=== PATIENT | female | born 1940 | race Caucasian/White ===

== ENCOUNTER 2022-12-16 22:49 | Emergency (ER) | payer MEDICARE, BC, SELFPAY ==
--- NOTE | 2022-12-16 | ECG_ITS ---
Test Reason : SOB Blood Pressure : / mmHG Vent. Rate : 085 BPM Atrial Rate : 085 BPM P-R Int : 186 ms QRS Dur : 146 ms QT Int : 394 ms P-R-T Axes : 052 -02 133 degrees QTc Int : 468 ms Normal sinus rhythm Left bundle branch block Abnormal ECG No previous ECGs available Referred By: Generic ED Physician Electronically Signed By:IDALIA MAC
--- NOTE | ~2022-12-16 | XR_ITS ---
EXAMINATION: XR KNEE, LEFT CLINICAL INFORMATION: Fall. Pain. COMPARISON: None available. TECHNIQUE: Four views of the left knee. FINDINGS: The bone mineralization is normal. There is mild medial knee degenerative change with mild loss of joint space and minimal osteophyte formation. There is no fracture. There is no joint effusion. The soft tissues are unremarkable. XR/XR knee LT 4V IMPRESSION: Mild medial knee degenerative change. No acute osseous abnormality.
[2022-12-16 22:54] VITALS: BP 152/67; BP 180/120; PULSE 87; PULSE 88; RESP 15; TEMP 36.6; O2SAT 90; O2SAT 95; BMI 44.8
--- NOTE | 2022-12-16 23:21 | MHC.EDTECH ---
this tech assumed care of this pt upon arrival. PT placed on it systems engineer, EKG completed and handed into provider. Bloodwork drawn and sent for processing. Pt changed into hospital gown Red fall risk wristband and red socks placed on PT
[2022-12-16 23:23] LABS: Basophils Percent Auto 0.3 % (0-2); Eosinophils Absolute Auto 0.2 X10*3/uL (0.0-0.4); Eosinophils Percent Auto 1.3 % (0-4); Imm Gran Abs Auto 0.08 X10*3/uL (0.00-0.03); Imm Gran Pct Auto 0.5 % (0.0-0.4); Lymphocytes Absolute Auto 2.5 X10*3/uL (1.2-4.9); Lymphocytes Percent Auto 16.3 % (20-40); MANUAL DIFF FLAG NO; Mean Corpuscular Hemoglobin 28.7 pg (27.0-33.0); Mean Corpuscular Volume 92.7 fL (80.0-98.0); Mean Platelet Volume 10.8 fL (9.4-12.3); Monocytes Absolute Auto 1.4 X10*3/uL (0.1-1.2); Monocytes Percent Auto 9.5 % (2-11); Neutrophils Absolute Auto 10.8 x10*3/uL (2.0-8.3); Neutrophils Percent Auto 72.1 % (45-73); Platelet Count 281 X10*3/uL (160-400); Red Blood Count 4.53 X10*6/uL (4.20-5.50); Red Cell Distribution Width 14.8 % (11.0-16.0)
--- NOTE | 2022-12-16 23:27 | ED_ITS ---
HPI - Fall General Chief Complaint: Fall Stated Complaint: MECHANICAL FALL DIFF BREATHING HX COPD Time Seen by Provider: 12/16/22 23:25 Source: patient Mode of arrival: ambulatory Limitations: no limitations History of Present Illness HPI Narrative: Patient history of COPD on home oxygen p.r.n. visiting from floor of tripped on her shoe under her left side hitting her knee to the ground no head injury no other injuries no loss of consciousness for the slightly more short of breath after fall Related Data Allergies Allergy/AdvReac Type Severity Reaction Status Date / Time No Known Allergies Allergy Verified 12/16/22 23:38 Review of Systems 2 Review of Systems: Yes all other systems are reviewed and are negative [facility] Social History Social History Alcohol intake: never Smoked in Last 30 Days: No Use of substances other than those prescribed or required for medical reasons: No Advance Directives: No Advance Directives Information Provided: Yes Physical Exam 2 Vital Signs: Vital Signs: Last Vital Signs Temp 99.0 F 12/17/22 02:12 Pulse 102 H 12/17/22 02:12 Resp 26 H 12/17/22 02:12 BP 152/67 H 12/16/22 22:54 Pulse Ox 93 12/17/22 02:12 O2 Del Method Nasal Cannula 12/17/22 02:12 O2 Flow Rate 1 12/17/22 02:12 Oxygen Flow Rate 1 12/16/22 22:54 BMI result Body Mass Index 44.8 Appearance: Alert. Oriented X3. No acute distress. Eyes: PERRLA, ENT: Pharynx normal. Oral Mucosa moist, AT ,NC Neck: Normal inspection. Neck supple. CVS: Normal heart rate and rhythm. Pulses normal. Respiratory: No respiratory distress. Equal air entry bilateral, bilateral wheeze+ Abdomen: Soft and nontender. Bowel sounds are present, no mass palpable, no CVA tenderness Skin: Skin warm and dry. Normal skin color. Normal skin turgor. Extremities: No lower extremity edema. No calf tenderness pelvis stable, left knee diffuse tenderness mild swelling Neuro: Oriented X 3. No motor deficit. No sensory deficit.No cerebellar signs , cranial nerves II-XII intact Medications Administered Discontinued Medications Generic Name Dose Route Start Last Admin Trade Name Freq PRN Reason Stop Dose Admin Albuterol Sulfate 5 mg 12/16/22 23:38 12/16/22 23:46 Albuterol Sulfate (0.083%) 2.5 Mg/3 Ml Vial.Neb INHALE 12/16/22 23:39 5 mg ONCE ONE Administration Albuterol/Ipratropium 3 ml 12/16/22 23:38 12/16/22 23:46 Albuterol/Iprat 2.5/0.5mg 3 Ml Ampul.Neb INHALE 12/16/22 23:39 3 ml ONCE ONE Administration Morphine Sulfate 4 mg 12/17/22 01:05 12/17/22 01:17 Morphine Sulfate 4 Mg/Ml Cartridge IVPUSH 12/17/22 01:06 Not Given ONCE ONE Protocol Medical Decision Making Medical Decision Making [facility] Narrative: Patient's left knee contusions after mechanical fall x-ray negative for fracture labs are stable does have COPD take prednisone off and on advised her to take her on prednisone next few days as prescribed by her PCP. Discharged patient home patient was ambulatory in the ED Lab Data [facility] Lab Attestation statement: I reviewed the patient's lab results. 12/16/22 23:18 12/16/22 23:18 Labs: Lab Results 12/16/22 Range/Units 23:18 WBC 15.0 H (4.8-10.8) X10*3/uL RBC 4.53 (4.20-5.50) X10*6/uL Hgb 13.0 (12.0-16.0) g/dl Hct 42.0 (37.0-47.0) % MCV 92.7 (80.0-98.0) fL MCH 28.7 (27.0-33.0) pg MCHC 31.0 (31.0-35.0) g/dl RDW 14.8 (11.0-16.0) % Plt Count 281 (160-400) X10*3/uL MPV 10.8 (9.4-12.3) fL Immature Gran % (Auto) 0.5 H (0.0-0.4) % Neut % (Auto) 72.1 (45-73) % Lymph % (Auto) 16.3 L (20-40) % Luna % (Auto) 9.5 (2-11) % Eos % (Auto) 1.3 (0-4) % Baso % (Auto) 0.3 (0-2) % Lymph # (Auto) 2.5 (1.2-4.9) X10*3/uL Luna # (Auto) 1.4 H (0.1-1.2) X10*3/uL Eos # (Auto) 0.2 (0.0-0.4) X10*3/uL Baso # (Auto) 0.0 (0.0-0.2) X10*3/uL Abs Immat Gran (auto) 0.08 H (0.00-0.03) X10*3/uL Absolute Neuts (auto) 10.8 H (2.0-8.3) x10*3/uL Absolute Nucleated RBC 0.000 (0.0-0.012) X10*3/uL Nucleated RBC % (auto) 0.0 (0.0-0.2) /100WBC Sodium 140 (135-145) mmol/L Potassium 4.5 (3.3-5.1) mmol/L Chloride 102 (96-108) mmol/L Carbon Dioxide 26 (22-29) mmol/L Anion Gap 17 (12-20) BUN 32 H (9-16) mg/dL Creatinine 1.47 H (0.5-1.4) mg/dL Estim Creat Clear Calc 37.3 Estimated GFR 34 Random Glucose 182 H (60-115) mg/dL Calcium 10.7 H (8.4-10.2) mg/dL Discharge Plan Discharge Clinical Impression: Contusion of knee, left, Fall Patient Disposition: Home, Self-Care Instructions: Knee Pain (ED), Fall Prevention (ED) Additional Instructions: Care and cautions as advised Tylenol/Motrin for pain Take her oxygen nebulizing treatment as advised by PCP
[2022-12-16 23:43] LABS: Anion Gap 17 (12-20); Blood Urea Nitrogen 32 mg/dL (9-16); Calcium 10.7 mg/dL (8.4-10.2); Carbon Dioxide 26 mmol/L (22-29); Chloride 102 mmol/L (96-108); Creatinine Clr Calc Pharmacy 37.3; Estimated Glomerular Filt Rate 34; Glucose Random 182 mg/dL (60-115); Potassium 4.5 mmol/L (3.3-5.1); Sodium 140 mmol/L (135-145)
[2022-12-16] MEDS: Albuterol Sulfate (0.083%) 2.5 MG/3 ML VIAL.NEB 5 MG INHALE (23:46)
[2022-12-16] MEDS: Albuterol/Iprat 2.5/0.5MG 3 ML AMPUL.NEB INHALE (23:46)
[2022-12-16 23:48] VITALS: PULSE 92; RESP 18; O2SAT 95
--- NOTE | 2022-12-17 00:36 | PC.NURSE ---
pt resting comfortably on stretcher, respirations even and unlabored, skin pwd, alert and oriented x4. Pt on 1L of O2 to maintain 92-95%. Pt occasionally uses O2 at home as needed. Pt reporting no pain at this time
[2022-12-17 02:12] VITALS: PULSE 102; RESP 26; TEMP 37.2; O2SAT 93
--- NOTE | 2022-12-17 02:12 | PC.NURSE ---
patient ambulated to bathroom with this RN at side. Pt has slightly unsteady gait, needing to rely on this RN for balance. Pt states this is her baseline as she holds on to things to get around the house. pt reports that she is not from here and she is just visiting friends, she is supposed to go back down to [place] tomorrow to go home. Pt was very out of breath from walking the short distance to the bathroom, patient placed back on O2, at 945, respirations 38. Pt recovered quickly once sitting down
== END 2022-12-17 02:55 | disposition home or self-care (01) ==
PROVIDERS: Emergency Provider Internal Medicine
DX: S80.02XA Contusion of left knee, initial encounter (principal); J44.9 Chronic obstructive pulmonary disease, unspecified; R06.02 Shortness of breath; R94.31 Abnormal electrocardiogram [ECG] [EKG]; W01.10XA Fall on same level from slipping, tripping and stumbling with subsequent striking against unspecified object, initial encounter; Y93.9 Activity, unspecified; Y92.9 Unspecified place or not applicable; Y99.9 Unspecified external cause status; Z99.81 Dependence on supplemental oxygen; Z79.899 Other long term (current) drug therapy
CPT/HCPCS: 36415; 73564; 80048; 85025; 93005; 94640; 96365; 96375; 99284; 99285